=== PATIENT | female | born 1950 | race Caucasian/White ===

== ENCOUNTER 2020-06-10 21:28 | Inpatient (IN) ==
[2020-06-10] MEDS ORDERED: ALBUTEROL/IPRATROPIUM 3 ML NEB RESP TX STA (22:01)
[2020-06-10] MEDS ORDERED: NITROGLYCERIN SL 0.4 MG TABLET SL STA (22:01)
[2020-06-10] MEDS ORDERED: methylPREDNISolone SOD SUC 125 MG/2 ML VIAL IV STA (22:02)
[2020-06-10] MEDS ORDERED: ASPIRIN EC 325 MG TABLET PO STA (22:03)
[2020-06-10 22:04] LABS: Basophils # 0.1 10*3/uL (0.0-0.2); Basophils % 0.6 % (0.0-0.8); Eosinophils # 0.1 10*3/uL (0.0-0.87); Eosinophils % 0.4 % (0.00-10.9); Hematocrit 42.3 VOL% (35.7-47.0); Hemoglobin 14.1 GM/DL (12.0-16.0); Immature Granulocytes % 0.6 %; Immature Granulocytes Absolute 0.12 #; Lymphocytes # 3.6 10*3/uL (1.4-4.0); Lymphocytes % 18.1 % (21.3-54.2); Mean Corpuscular HGB Conc 33.3 GM/DL (32-36); Mean Platelet Volume 10.6 FL (9.6-12.0); Monocytes % 5.4 % (1.7-12.7); Neutrophils % 74.9 % (38.7-73.9); Platelet Count 256 T/CUMM (130-400); Red Blood Count 4.36 MC/CUMM (3.8-5.5); Red Cell Distribution Width 11.9 % (9.3-17.3); White Blood Count 19.7 T/CUMM (4-12)
[2020-06-10] MEDS ORDERED: HEPARIN 1,000 UNIT/1 ML VIAL IV STA (22:17)
[2020-06-10] MEDS ORDERED: TICAGRELOR 90 MG TABLET PO STA (22:19)
[2020-06-10] MEDS ORDERED: HEPARIN 5,000 UNIT/1 ML VIAL ONE ×2 (22:20→22:55)
[2020-06-10 22:29] LABS: Albumin 3.5 G/DL (3.4-5.0); Bilirubin,Total 0.4 MG/DL (0.2-1.0); Calcium 9.5 MG/DL (8.5-10.1); Osmolality,Calculated 277.7 MOS/KG (273-304); Potassium 3.7 MMOL/L (3.5-5.1); Total Protein 6.5 G/DL (6.4-8.2)
[2020-06-10 22:29] LABS: ABG Base Excess -0.5 MMOL/L (-2.5-2.5); ABG HCO3 23.9 MMOL/L (20-26); ABG Oxygen Saturation 95.2 % (95-100); ABG PCO2 40.1 MM HG (35-48); ABG PH 7.391 (7.35-7.45); ABG PO2 75.3 MM HG (80-95)
[2020-06-10] MEDS ORDERED: LIDOCAINE 1% 20 ML VIAL ONE (22:35)
[2020-06-10] MEDS ORDERED: HEPARIN/NACL 0.9% 2 UNITS/ML 1,000 ML IV ONE (22:35)
[2020-06-10] MEDS ORDERED: MIDAZOLAM 2 MG/2 ML VIAL ONE (22:43)
[2020-06-10] MEDS ORDERED: fentaNYL 100 MCG/2 ML VIAL ONE (22:43)
[2020-06-10 22:49] LABS: Platelet Estimate Adequate
[2020-06-10] MEDS ORDERED: EPTIFIBATIDE 0 MG/0 ML BOTTLE IV ONE (22:56)
[2020-06-10] MEDS ORDERED: EPTIFIBATIDE 20,000 MCG/10 ML VIAL ONE (23:00)
[2020-06-10] MEDS ORDERED: NITROPRUSSIDE 50 MG/2 ML VIAL ONE (23:02)
[2020-06-10] MEDS ORDERED: EPTIFIBATIDE 75 MG/100 ML BOTTLE IV ONE (23:14)
[2020-06-10] MEDS ORDERED: EPTIFIBATIDE 75 MG/100 ML BOTTLE IV SCH (23:17)
[2020-06-10] MEDS ORDERED: METOPROLOL TARTRATE 5 MG/5 ML VIAL IV ONE (23:39)
[2020-06-10] MEDS ORDERED: SODIUM CHLORIDE 0.9% 1,000 ML IV SCH (23:45)
[2020-06-10] MEDS ORDERED: NITROGLYCERIN SL 0.4 MG TABLET SL PRN (23:57)
[2020-06-11] MEDS ORDERED: ALBUTEROL/IPRATROPIUM 3 ML NEB RESP TX PRN (00:31)
[2020-06-11 00:59] LABS: Calcium 8.5 MG/DL (8.5-10.1); Potassium 3.4 MMOL/L (3.5-5.1)
[2020-06-11 01:04] LABS: CKMB % 9.1 %
[2020-06-11 01:09] LABS: Troponin I 1.8 NG/ML (0.00-0.045)
[2020-06-11 01:10] LABS: Basophils # 0.1 10*3/uL (0.0-0.2); Basophils % 0.5 % (0.0-0.8); Hematocrit 39.2 VOL% (35.7-47.0); Lymphocytes % 4.7 % (21.3-54.2); Mean Corpuscular HGB Conc 33.2 GM/DL (32-36); Mean Platelet Volume 11.3 FL (9.6-12.0); Monocytes % 4.2 % (1.7-12.7); Neutrophils % 89.6 % (38.7-73.9); Platelet Count 231 T/CUMM (130-400); Red Blood Count 3.96 MC/CUMM (3.8-5.5); Red Cell Distribution Width 11.9 % (9.3-17.3); White Blood Count 20.5 T/CUMM (4-12)
[2020-06-11 03:29] LABS: Band Neutrophils 1 % (0-10); Lymphocytes 9 % (20-55); Platelet Estimate Adequate; Segmented Neutrophils 90 % (50-85); Total Cells Counted 100
[2020-06-11] MEDS ORDERED: ONDANSETRON 4 MG/2 ML VIAL IV PRN (04:13)
[2020-06-11] MEDS ORDERED: FUROSEMIDE 20 MG/2 ML VIAL IV ONE ×2 (07:20→09:50)
[2020-06-11] MEDS ORDERED: POTASSIUM CHLORIDE 20 MEQ TABLET PO ONE (07:20)
[2020-06-11 07:54] LABS: CKMB % 13.8 %
[2020-06-11 07:57] LABS: Troponin I 4.85 NG/ML (0.00-0.045)
[2020-06-11] MEDS: TICAGRELOR 90 MG TABLET PO SCH ×2 (08:06→21:07)
[2020-06-11] MEDS: ASPIRIN EC 81 MG TABLET PO SCH (08:08)
[2020-06-11] MEDS: CETIRIZINE 10 MG TABLET PO SCH (10:06)
[2020-06-11] MEDS: METOPROLOL TARTRATE 25 MG TABLET PO SCH ×2 (10:06→21:08)
[2020-06-11] MEDS ORDERED: GLUCAGON 1 MG VIAL IM PRN ×2 (10:14→13:50)
[2020-06-11] MEDS ORDERED: DEXTROSE 50% 25 GM/50 ML VIAL IV PRN ×2 (10:14→13:50)
[2020-06-11] MEDS: FLUTICASONE 50 MCG NASAL SPRAY 16 GM BOTTLE BOTH NARES SCH ×2 (10:37→21:11)
[2020-06-11] MEDS ORDERED: NICOTINE 21 MG/24 HR PATCH TRANSDERM PRN (10:57)
[2020-06-11] MEDS ORDERED: MAGNESIUM HYDROXIDE SUSP 30 ML UDCUP PO PRN (10:57)
[2020-06-11] MEDS ORDERED: diphenhydrAMINE CAP 25 MG CAPSULE PO PRN (10:57)
[2020-06-11] MEDS: ASCORBIC ACID 500 MG TABLET PO SCH ×2 (11:16→21:14)
[2020-06-11] MEDS: AZITHROMYCIN 250 MG TABLET PO SCH (12:27)
[2020-06-11] MEDS: ALBUTEROL/IPRATROPIUM 3 ML NEB RESP TX SCH ×2 (13:11→21:19)
[2020-06-11 16:11] LABS: Troponin I 13.4 NG/ML (0.00-0.045)
[2020-06-11] MEDS: FUROSEMIDE 20 MG/2 ML VIAL IV SCH (16:23)
[2020-06-11] MEDS: INSULIN REGULAR 100 UNIT/ML SUBCUT SCH ×2 (18:24→21:24)
[2020-06-11] MEDS ORDERED: ATORVASTATIN 40 MG TABLET PO SCH (21:00)
[2020-06-11] MEDS ORDERED: ROSUVASTATIN 20 MG TABLET PO SCH (21:00)
[2020-06-12] MEDS: ALBUTEROL/IPRATROPIUM 3 ML NEB RESP TX SCH ×2 (00:12→07:35)
[2020-06-12 06:39] LABS: Basophils % 0.3 % (0.0-0.8); Eosinophils % 0.2 % (0.00-10.9); Hematocrit 38.7 VOL% (35.7-47.0); Hemoglobin 12.9 GM/DL (12.0-16.0); Immature Granulocytes % 0.7 %; Immature Granulocytes Absolute 0.08 #; Lymphocytes # 3.1 10*3/uL (1.4-4.0); Lymphocytes % 25.3 % (21.3-54.2); Mean Corpuscular HGB Conc 33.3 GM/DL (32-36); Mean Corpuscular Volume 96.5 FL (87-102); Mean Platelet Volume 11.2 FL (9.6-12.0); Monocytes % 8.8 % (1.7-12.7); Neutrophils % 64.7 % (38.7-73.9); Platelet Count 208 T/CUMM (130-400); Red Blood Count 4.01 MC/CUMM (3.8-5.5); White Blood Count 12.1 T/CUMM (4-12)
[2020-06-12 06:59] LABS: Calcium 9.1 MG/DL (8.5-10.1); Osmolality,Calculated 279.4 MOS/KG (273-304); Potassium 3.1 MMOL/L (3.5-5.1)
[2020-06-12] MEDS ORDERED: POTASSIUM CHLORIDE 20 MEQ TABLET PO ONE (07:12)
[2020-06-12 07:14] LABS: Risk Ratio 4.83; VLDL CHOLESTEROL 28.2 MG/DL
[2020-06-12] MEDS: INSULIN REGULAR 100 UNIT/ML SUBCUT SCH ×2 (08:24→12:58)
[2020-06-12] MEDS ORDERED: ESTRADIOL 1 MG TABLET PO SCH (09:00)
[2020-06-12] MEDS: METOPROLOL TARTRATE 25 MG TABLET PO SCH (09:16)
[2020-06-12] MEDS: AZITHROMYCIN 250 MG TABLET PO SCH (09:17)
[2020-06-12] MEDS: TICAGRELOR 90 MG TABLET PO SCH (09:17)
[2020-06-12] MEDS: ASCORBIC ACID 500 MG TABLET PO SCH (09:17)
[2020-06-12] MEDS: CETIRIZINE 10 MG TABLET PO SCH (09:18)
[2020-06-12] MEDS: ASPIRIN EC 81 MG TABLET PO SCH (09:18)
[2020-06-12] MEDS: FLUTICASONE 50 MCG NASAL SPRAY 16 GM BOTTLE BOTH NARES SCH (09:21)
[2020-06-12] MEDS: FUROSEMIDE 20 MG/2 ML VIAL IV SCH (10:27)
[2020-06-12 12:07] VITALS: BP 109/57
== END 2020-06-12 13:20 | disposition home or self-care (01) | DRG 246 ==
LOC: N.ED 21:28 → N.CC 22:36 → N.EDINP 23:15 → N.CC 23:21 → N.TELEN 06-11 14:51
PROVIDERS: ADMIT Internal Medicine Cardiovascular Disease; ATTEND Internal Medicine Cardiovascular Disease
PROC: CLCCHCL (ICD-10-PCS; 2020-06-10 23:00)